=== PATIENT | male | born 1940 | race Two or more races ===

== ENCOUNTER 2017-09-06 19:27 | Emergency (ER) | payer MEDICARE ==
[~2017-09-06] VITALS: Ht 154.9 cm; Wt 55.3 kg
[~2017-09-06 19:27] MED LIST: ALBU2.5V13 NEB; DILT360C29 PO; FURO40TA5 PO; Guaifenesin/D-Methorphan Hb PO; LEVO750P IV; METO25TA6 PO; PANT40TA4 PO; POTA20PA3 PO; SIMV20TA2 PO; WARF2.5T47 PO; WARF5TAB77 PO; [UNRECOGNIZED DRUG - CODE] PO
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
[2017-09-06 20:28] LABS: CARBON DIOXIDE 32 mmol/L (21-32); CHLORIDE 100 mmol/L (98-107); CREATININE 1.1 mg/dL (0.6-1.3); GLUCOSE 115 mg/dL (74-106); POTASSIUM 4.3 mmol/L (3.5-5.1); UREA NITROGEN, BLOOD 34 mg/dL (7-18)
[2017-09-06 20:41] LABS: ALANINE AMINOTRANSFERASE 54 U/L (16-63); ALKALINE PHOSPHATASE 215 U/L (50-136); ASPARTATE AMINOTRANSFERASE 36 U/L (15-37); BILIRUBIN,DIRECT 0.2 mg/dL (0.0-0.2); BILIRUBIN,TOTAL 0.4 mg/dL (0.2-1.0); TOTAL PROTEIN, SERUM 7.8 g/dL (6.4-8.2)
[2017-09-06 20:42] LABS: BASOPHILS % (AUTO) 0.3 % (0.0-2.0); EOSINOPHILS # (AUTO) 1.3 K/uL (0.0-0.7); EOSINOPHILS % (AUTO) 15.5 % (0.0-7.0); HEMATOCRIT 37.6 % (40-50); HEMOGLOBIN 11.1 G/DL (14.0-18.0); LYMPHOCYTES % (AUTO) 12.3 % (20.5-51.5); MEAN CORPUSCULAR HEMOGLOBIN 17.7 UUG (27.0-31.0); MEAN CORPUSCULAR HGB CONC 30 g/dL (32.0-37.0); MONOCYTES # (AUTO) 0.7 K/UL (0.1-1.30); MONOCYTES % (AUTO) 8.6 % (0.0-11.0); NEUTROPHILS # (AUTO) 5.4 K/UL (1.8-8.9); NEUTROPHILS % (AUTO) 63.3 % (38.5-71.5); PLATELET COUNT (AUTO) 275 K/UL (150-450); RED BLOOD CELL COUNT(AUTO) 6.26 MIL/UL (4.7-6.1); WHITE BLOOD COUNT (AUTO) 8.4 K/UL (4.0-11.2)
--- NOTE | 2017-09-06 21:10 | NUR ---
Pt ambulated to and from br with steady gait. Dr. Brambila at bedside speaking with pt. Awaiting further orders
--- NOTE | 2017-09-06 21:19 | NUR ---
Pt stable for discharge per Dr. Brambila. Pt and family given ACI. Both verbalized understanding of dc instructions. Pt ambulated out of ER with steady gait and ride home.
[2017-09-06 21:20] VITALS: BP 124/80
== END 2017-09-06 21:21 | disposition home or self-care (01) ==
LOC: ER 19:31
DX: S20.219A Contusion of unspecified front wall of thorax, initial encounter (principal); E78.5 Hyperlipidemia, unspecified; Z95.2 Presence of prosthetic heart valve; Z88.6 Allergy status to analgesic agent; Z79.01 Long term (current) use of anticoagulants; V49.40XA Driver injured in collision with unspecified motor vehicles in traffic accident, initial encounter; Y93.89 Activity, other specified; Y92.413 State road as the place of occurrence of the external cause; Y99.8 Other external cause status
CPT/HCPCS: 36415; 71010; 80048; 80076; 83880; 84484; 85025; 85730; 93005; 99285; A4663; 70030-TC